=== PATIENT | male | born 1960 | race Caucasian/White ===

== ENCOUNTER → 2024-09-20 07:46 | Outpatient (REF) | payer MEDICARE, BC, SELFPAY | LOC: HWRAD 07:46 | PROVIDERS: ATTENDING PHYSICIAN Family Medicine | DX: E66.9 Obesity, unspecified (principal); Z87.891 Personal history of nicotine dependence | CPT/HCPCS: 76770 ==

== ENCOUNTER → 2025-02-14 14:57 | Outpatient (REF) | payer MEDICARE, BC, SELFPAY | LOC: HWRAD 14:57 | PROVIDERS: ATTENDING PHYSICIAN Family Medicine | DX: M54.50 Low back pain, unspecified (principal) | CPT/HCPCS: 72110 ==